=== PATIENT | male | born 1985 | race American Indian/Alaskan Native ===

== ENCOUNTER 2017-04-18 18:50 | Emergency (ER) | payer OTHER ==
[2017-04-18 19:02] VITALS: BP 118/77
--- NOTE | 2017-04-18 19:59 | Emergency Department Report ---
Entered by PRAVEEN CORTEZ, acting as scribe for NAEEM SAPP NP. - General Chief Complaint: Upper Respiratory Infection Stated Complaint: FLU LIKE PAIN/CHEST PAIN Time Seen by Provider: 04/18/17 19:28 Source: patient Mode of arrival: Ambulatory Limitations: No Limitations - History of Present Illness Initial Comments: 31 y/o male presents to the ED c/o productive cough with clear sputum x 4 days. Associated symptoms include congestion and sore throat but he denies fever, chills, wheezing, SOB and ear ache. Uses tobacco products (1/2 pack daily). No alleviating or aggravating factors. NKDA. DREW Complaint: cough Onset/Timin -: days(s) Severity: mild Severity scale (0 -10): 3 Consistency: constant Improves With: nothing Worsens With: nothing Associated Symptoms: nasal congestion, sore throat, cough. denies: fever, chills, shortness of breath, other (wheezing, ear ache, SOB) Treatments Prior to Arrival: none - Related Data Previous Rx's Medication Instructions Recorded Last Taken Type Guaifenesin/Pseudoephedrne HCl 1 tab PO BID #30 tab 04/18/17 Unknown Rx [Mucinex D ER 1,200-120 mg Tab] Ibuprofen [Motrin 800 MG tab] 800 mg PO Q8HR PRN #30 tablet 04/18/17 Unknown Rx Allergies Allergy/AdvReac Type Severity Reaction Status Date / Time No Known Allergies Allergy Verified 06/02/14 23:37 ED Review of Systems Comment: All other systems reviewed and negative Constitutional: denies: chills, fever ENT: throat pain, congestion. denies: ear pain Respiratory: cough. denies: shortness of breath, wheezing Cardiovascular: denies: chest pain, palpitations Endocrine: no symptoms reported Gastrointestinal: denies: abdominal pain, nausea, diarrhea Genitourinary: denies: urgency, dysuria Musculoskeletal: denies: back pain, joint swelling, arthralgia Skin: denies: rash, lesions Neurological: denies: headache, weakness, paresthesias Psychiatric: denies: anxiety, depression Hematological/Lymphatic: denies: easy bleeding, easy bruising ED Past Medical Hx - Past Medical History Previous Medical History?: Yes Additional medical history: stomach ulcer - Surgical History Past Surgical History?: No - Social History Smoking Status: Current Every Day Smoker Substance Use Type: None - Medications Home Medications: Home Medications Medication Instructions Recorded Confirmed Last Taken Type Guaifenesin/Pseudoephedrne HCl 1 tab PO BID #30 tab 04/18/17 Unknown Rx [Mucinex D ER 1,200-120 mg Tab] Ibuprofen [Motrin 800 MG tab] 800 mg PO Q8HR PRN #30 tablet 04/18/17 Unknown Rx ED Physical Exam - General Limitations: No Limitations General appearance: alert, in no apparent distress - Head Head exam: Present: atraumatic, normocephalic, normal inspection - Eye Eye exam: Present: normal appearance, PERRL, EOMI. Absent: scleral icterus, conjunctival injection, nystagmus, periorbital swelling, periorbital tenderness Pupils: Present: normal accommodation - ENT ENT exam: Present: normal exam, normal orophraynx, mucous membranes moist, TM's normal bilaterally, normal external ear exam. Absent: other (no erythema or exudate) - Expanded ENT Exam Expanded Ear exam: Present: normal external inspection Mouth exam: Present: normal external inspection, tongue normal Throat exam: Positive: normal inspection, tonsillar erythema. Negative: tonsillomegaly, tonsillar exudate, R peritonsillar mass, L peritonsillar mass - Neck Neck exam: Present: normal inspection, full ROM. Absent: tenderness, meningismus, lymphadenopathy, thyromegaly - Respiratory Respiratory exam: Present: normal lung sounds bilaterally. Absent: respiratory distress, wheezes, rales, rhonchi, stridor, chest wall tenderness, accessory muscle use, decreased breath sounds, prolonged expiratory - Cardiovascular Cardiovascular Exam: Present: regular rate, normal rhythm, normal heart sounds. Absent: bradycardia, tachycardia, irregular rhythm, systolic murmur, diastolic murmur, rubs, gallop - GI/Abdominal GI/Abdominal exam: Present: soft, normal bowel sounds. Absent: distended, tenderness, guarding, rebound, rigid, diminished bowel sounds - Rectal Rectal exam: Present: deferred - Extremities Exam Extremities exam: Present: normal inspection, full ROM, normal capillary refill. Absent: tenderness, pedal edema, joint swelling, calf tenderness - Back Exam Back exam: Present: normal inspection, full ROM. Absent: tenderness, CVA tenderness (R), CVA tenderness (L), muscle spasm, paraspinal tenderness, vertebral tenderness, rash noted - Neurological Exam Neurological exam: Present: alert, oriented X3 - Psychiatric Psychiatric exam: Present: normal affect, normal mood - Skin Skin exam: Present: warm, dry, intact, normal color. Absent: rash ED Course Vital Signs 04/18/17 19:00 Temperature 98.5 F Pulse Rate 95 H Respiratory 16 Rate Blood Pressure 118/77 O2 Sat by Pulse 97 Oximetry ED Medical Decision Making - Medical Decision Making Pt is a 31 y/o aam with hx cap 1 yr ago who presents for uri symptoms cough rhinorrhea and chest congestion cough productive clear there is no fever no sob no wheezing no dizziness exam: TMs clear, no erythema no pain , nose: mild turbinate erythema no boggy clear post nasal drip no polyps no obstruction no sinus tenderness no pharynx: moderate erythema no exudate no lesions no swelling uvula midline, no stridor no wheezing lungs clear bilat all lobes, CV: S1 and S2 no MRG, no chest wall tenderness, plan: Mucinex D Ibuprofen prn, discussed URI with patient , patient verbalized agreement and understanding of discharge plan. ED Disposition Clinical Impression: URI (upper respiratory infection) Qualifiers: URI type: acute nasopharyngitis (common cold) Qualified Code(s): J00 - Acute nasopharyngitis [common cold] Disposition: - TO HOME OR SELFCARE Is pt being admited?: No Does the pt Need Aspirin: No Condition: Good Instructions: Upper Respiratory Infection (ED) Prescriptions: Guaifenesin/Pseudoephedrne HCl [Mucinex D ER 1,200-120 mg Tab] 1 tab PO BID #30 tab Ibuprofen [Motrin 800 MG tab] 800 mg PO Q8HR PRN #30 tablet PRN Reason: pain Forms: Work/School Release Form(ED) Time of Disposition: 19:58 This documentation as recorded by the DANA davenport ELIZABETH,accurately reflects the service I personally performed and the decisions made by me, NAEEM SAPP NP.
== END 2017-04-18 20:17 | disposition home or self-care (01) ==
LOC: ED 18:50
DX: J06.9 Acute upper respiratory infection, unspecified (principal); F17.210 Nicotine dependence, cigarettes, uncomplicated
CPT/HCPCS: 93005; 93010; 99282